=== PATIENT | female | born 2000 | race American Indian/Alaskan Native ===

== ENCOUNTER 2020-10-13 16:16 | Emergency (ER) | payer SELFPAY ==
[2020-10-13] MEDS ORDERED: PANTOPRAZOLE 40 MG INJ IV ONE (16:50)
[2020-10-13 17:14] LABS: Basophils % (Auto) 0.4 % (0.0-1.8); Eosinophils # (Auto) 0.4 K/mm3 (0.0-0.4); Eosinophils % (Auto) 6.2 % (0.0-4.3); Hematocrit 33.6 % (30.3-42.9); Hemoglobin 11.2 gm/dl (10.1-14.3); Lymphocytes # (Auto) 2.1 K/mm3 (1.2-5.4); Lymphocytes % (Auto) 30.5 % (13.4-35.0); Mean Corpuscular HGB Conc 33 % (30-34); Mean Corpuscular Volume 86 fl (79-97); Monocytes # (Auto) 0.7 K/mm3 (0.0-0.8); Monocytes % (Auto) 9.7 % (0.0-7.3); Platelet Count 322 K/mm3 (140-440); Red Blood Count 3.93 M/mm3 (3.65-5.03); Red Cell Distribution Width 14.4 % (13.2-15.2)
--- NOTE | 2020-10-13 17:26 | Emergency Department Report ---
History of Present Illness - General Chief Complaint: Overdose Stated Complaint: TOOKS MEDS Time Seen by Provider: 10/13/20 17:12 Source: patient Mode of arrival: Ambulatory Limitations: No Limitations - History of Present Illness Initial Comments: CC: "I'm emotional and depression. I took over 20 pills of ibuprofen today." HPI: This is a 19 yo female who presents after overdose. She took 22 pills of ibuprofen 200 mg tablets. Patient informed her friend immediately after ingestion. The ingestion took place at 3 PM. Her friend brought her to the emergency department. Patient states that she feels as if she does not belong in her family. She was raised by her father and stepmother. She still lives with her father and stepmother. She has a strained relationship with her "biological" mom. She denies intimate partner stressors. She started a new job with [employer] last week. 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 She did graduate high school. Years ago she attempted to take her life by cutting herself. Due to life transition and "moving around", she lost access to her therapist and medical health treatment. she did take an antidepressant in the past. She denies use of tobacco alcohol or marijuana. Patient has mild nausea and stomach upset at this time. She denies discrete pain. No known exposure to COVID-19 Complaint: intentional overdose -: Sudden Intent: suicide attempt How Overdose Was Discovered: called family/friend Context: Intentional Overdose: relationship problems (with family) Treatments Prior to Arrival: none - Related Data Previous Rx's Medication Instructions Recorded Last Taken Type Dicloxacillin (Nf) [Dynapen (Nf)] 250 mg PO QID #40 capsule 08/27/13 Unknown Rx Allergies Allergy/AdvReac Type Severity Reaction Status Date / Time No Known Allergies Allergy Verified 08/26/13 21:14 ED Review of Systems ROS: Stated complaint: TOOKS MEDS Other details as noted in HPI Comment: All other systems reviewed and negative Constitutional: denies: fever, malaise Respiratory: denies: cough, shortness of breath Cardiovascular: denies: chest pain Gastrointestinal: nausea. denies: abdominal pain ED Past Medical Hx - Past Medical History Previous Medical History?: No - Surgical History Past Surgical History?: No - Social History Smoking Status: Never Smoker Substance Use Type: None - Medications Home Medications: Home Medications Medication Instructions Recorded Confirmed Last Taken Type Dicloxacillin (Nf) [Dynapen (Nf)] 250 mg PO QID #40 capsule 08/27/13 Unknown Rx ED Physical Exam - General Limitations: No Limitations General appearance: alert, in no apparent distress - Head Head exam: Present: atraumatic, normocephalic - Eye Eye exam: Present: normal appearance - ENT ENT exam: Present: mucous membranes moist - Neck Neck exam: Present: normal inspection, full ROM - Respiratory Respiratory exam: Present: normal lung sounds bilaterally. Absent: respiratory distress - Cardiovascular Cardiovascular Exam: Present: regular rate, normal rhythm, normal heart sounds. Absent: systolic murmur, diastolic murmur, rubs, gallop - GI/Abdominal GI/Abdominal exam: Present: soft, normal bowel sounds. Absent: distended, tenderness, guarding, rebound - Extremities Exam Extremities exam: Present: normal inspection - Back Exam Back exam: Present: normal inspection - Neurological Exam Neurological exam: Present: alert, oriented X3 - Psychiatric Psychiatric exam: Present: normal affect, normal mood, other (Appears pleasant insightful affect does not appear to reflect the seriousness of the situation) - Skin Skin exam: Present: warm, dry, intact, normal color. Absent: rash ED Course Vital Signs 10/13/20 10/13/20 16:30 21:05 Temperature 98.2 F 98.2 F Pulse Rate 85 79 Respiratory 18 18 Rate Blood Pressure 145/89 Blood Pressure 137/91 [Left] O2 Sat by Pulse 100 99 Oximetry ED Medical Decision Making - Lab Data Result diagrams: 10/13/20 16:54 10/13/20 16:54 Laboratory Results - last 24 hr 10/13/20 10/13/20 10/13/20 16:54 16:54 16:54 WBC 6.8 RBC 3.93 Hgb 11.2 Hct 33.6 MCV 86 MCH 28 MCHC 33 RDW 14.4 Plt Count 322 Lymph % (Auto) 30.5 [place] % (Auto) 9.7 H Eos % (Auto) 6.2 H Baso % (Auto) 0.4 Lymph # (Auto) 2.1 [place] # (Auto) 0.7 Eos # (Auto) 0.4 Baso # (Auto) 0.0 Seg Neutrophils % 53.2 Seg Neutrophils # 3.6 PT 13.1 INR 1.01 APTT 27.1 Sodium 137 Potassium 3.9 Chloride 105.0 Carbon Dioxide 23 Anion Gap 13 BUN 13 Creatinine 0.7 Estimated GFR > 60 BUN/Creatinine Ratio 19 Glucose 79 Calcium 9.0 Total Bilirubin 0.20 AST 22 ALT 21 Alkaline Phosphatase 66 Total Protein 7.0 Albumin 3.6 L Albumin/Globulin Ratio 1.1 HCG, Qual Salicylates Acetaminophen Plasma/Serum Alcohol 10/13/20 10/13/20 10/13/20 16:54 16:54 16:54 WBC RBC Hgb Hct MCV MCH MCHC RDW Plt Count Lymph % (Auto) [place] % (Auto) Eos % (Auto) Baso % (Auto) Lymph # (Auto) [place] # (Auto) Eos # (Auto) Baso # (Auto) Seg Neutrophils % Seg Neutrophils # PT INR APTT Sodium Potassium Chloride Carbon Dioxide Anion Gap BUN Creatinine Estimated GFR BUN/Creatinine Ratio Glucose Calcium Total Bilirubin AST ALT Alkaline Phosphatase Total Protein Albumin Albumin/Globulin Ratio HCG, Qual Salicylates < 0.3 L Acetaminophen 5.0 L Plasma/Serum Alcohol < 0.01 10/13/20 16:54 WBC RBC Hgb Hct MCV MCH MCHC RDW Plt Count Lymph % (Auto) [place] % (Auto) Eos % (Auto) Baso % (Auto) Lymph # (Auto) [place] # (Auto) Eos # (Auto) Baso # (Auto) Seg Neutrophils % Seg Neutrophils # PT INR APTT Sodium Potassium Chloride Carbon Dioxide Anion Gap BUN Creatinine Estimated GFR BUN/Creatinine Ratio Glucose Calcium Total Bilirubin AST ALT Alkaline Phosphatase Total Protein Albumin Albumin/Globulin Ratio HCG, Qual Negative Salicylates Acetaminophen Plasma/Serum Alcohol - EKG Data -: EKG Interpreted by Ia EKG shows normal: sinus rhythm, axis, intervals, QRS complexes, ST-T waves Rate: normal - EKG Data Interpretation: normal EKG 10/13/20 17:43 EKG obtained 1643 EKG interpreted by ky Rate 75 bpm normal sinus rhythm normal rate normal axis normal intervals no ST elevation no ST-T signs of ischemia normal EKG - Medical Decision Making 1. intentional overdose ibuprofen: charge nurse obtain consultation with [place] [facility] control. Salicylate acetaminophen levels were ordered according to recommendations. Anticipated complications include acidosis, renal dysfunction and GI bleed. Patient will be cleared 6 hours after ingestion. 2. Acute depression with suicide ideation: Patient has received previous mental health treatment. She stated that she took an antidepressant in the past. She thinks that this medication began with the letter "C". Patient is medically clear for psychiatric care. 1013 form has been completed. Patient currently on involuntary hold. Awaiting treatment recommendations by our psychiatric team. Ms. Javier has been observed for 6 hours without adverse events. CBC chemistry within normal limits. Salicylate acetaminophen levels are negative. test negative. Urinalysis UDS unremarkable. Patient is medically clear for psychiatric care. Critical care attestation.: If time is entered above; I have spent that time in minutes in the direct care of this critically ill patient, excluding procedure time. ED Disposition Clinical Impression: Intentional overdose of drug in tablet form, Suicide attempt, Acute depression Disposition: DC/TX-70 ANOTHER TYPE HLTHCARE Is pt being admited?: No Does the pt Need Aspirin: No Condition: Stable
[2020-10-13 17:28] LABS: INR 1.01 (0.87-1.13); Partial Thromboplastin Time 27.1 Sec. (24.2-36.6)
[2020-10-13 17:34] LABS: Alanine Aminotransferase 21 units/L (7-56); Albumin 3.6 g/dL (3.9-5); BUN/Creatinine Ratio 19; Blood Urea Nitrogen 13 mg/dL (7-17); Hemolysis Index 5
[2020-10-13 19:33] LABS: Bilirubin,Urine NEG (Negative); Blood,Urine NEG (Negative); Color,Urine Yellow (Yellow); Mucus,Urine FEW /HPF; Protein,Urine <15 mg/dL mg/dL (Negative)
[2020-10-13 19:40] LABS: Amphetamine Screen,Urine Negative; Benzodiazepines Screen,Urine Negative; Cannabinoid Screen,Urine Negative; Cocaine Screen,Urine Negative; Methadone Screen,Urine Negative; Opiate Screen,Urine Negative
--- NOTE | 2020-10-14 08:18 | Consultation ---
History of Present Illness - Reason for Consult Consult date: 10/14/20 Reason for consult: suicide attempt by OD - History of Present Psychiatric Illness Per ED note: "HPI: This is a 19 yo female who presents after overdose. She took 22 pills of ibuprofen 200 mg tablets. Patient informed her friend immediately after ingestion. The ingestion took place at 3 PM. Her friend brought her to the emergency department. Patient states that she feels as if she does not belong in her family. She was raised by her father and stepmother. She still lives with her father and stepmother. She has a strained relationship with her "biological" mom. She denies intimate partner stressors. She started a new job with [employer] last week. 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 She did graduate high school. Years ago she attempted to take her life by cutting herself. Due to life transition and "moving around", she lost access to her therapist and medical health treatment. she did take an antidepressant in the past. She denies use of tobacco alcohol or marijuana." During my interview with 19y/o Millie Javier, she is sitting on side of the bed. She is tearful and tells me she's ready to go home and she didn't know she would be admitted. She is not forthcoming and tells different picture from what she told in the ER. She tells me she took "12 ibuprofen," but reported she took 22 pills of ibuprofen according to ER note. When asked about this the patient just kept crying. She also told me she did not know why she took the pills. She says "I don't know why I did that. Nothing was going on with me in my life." She then says, "I did it without thinking." The patient eventually admits to a breakup with her significant other that led to her taking the pills after I continued to speak with her. She denies having a suicide attempt in the past, although it is documented otherwise in the ED note. She also denies any psychiatric admissions. The patient says she was diagnosed with depression but hasn't been on meds in "about 4 years." She says she was on "I believe, celexa, but it made me feel weird." She verbalizes wanting meds and is asking to be placed on a different m edication. The patient denies any illicit drug use, alcohol or nicotine. She denies hallucinations of any kind. When asked about suicidal thoughts at present, the patient replied "no," then states "not really." She denies homicidal thoughts. PAST PSYCHIATRIC HISTORY: Diagnoses: Depression Suicide attempts or Self-harm behavior: Denies, but states one in ER note Prior psychiatric hospitalizations: Denies Substance Abuse history: Denies Previous psychiatric medications tried: Celexa Outpatient treatment: Denies PAST MEDICAL HISTORY: No significant past medical history Family Psychiatric History: None reported or documented SOCIAL HISTORY Marital Status: Single Living Arrangements: with parents Employment Status: employed Access to guns/weapons: Denies Education: High school History of Abuse: None reported Legal History: None reported REVIEW OF SYSTEMS Constitutional: Negative for weight loss ENT: Negative for stridor Respiratory: Negative for cough or hemoptysis All other systems reviewed and are negative MENTAL STATUS EXAMINATION General Appearance and Behavior: Age appropriate, good hygiene, wearing appropriate clothes, fair eye contact, cooperative with questioning. 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 Case staffed with Dr. Drummond. Medications and Allergies Allergies Allergy/AdvReac Type Severity Reaction Status Date / Time No Known Allergies Allergy Verified 08/26/13 21:14 Home Medications Medication Instructions Recorded Confirmed Last Taken Type No Known Home Medications [No 10/14/20 10/14/20 Unknown History Reported Home Medications] Mental Status Exam - Vital signs Last Vital Signs Temp 98.3 F 10/14/20 02:55 Pulse 85 10/14/20 02:55 Resp 18 10/14/20 02:55 BP 135/83 10/14/20 02:55 Pulse Ox 99 10/14/20 02:55 Results Result Diagrams: 10/13/20 16:54 10/13/20 16:54 Abnormal lab results 10/13/20 10/13/20 10/13/20 Range/Units 16:54 16:54 16:54 [place] % (Auto) 9.7 H (0.0-7.3) % Eos % (Auto) 6.2 H (0.0-4.3) % Albumin 3.6 L (3.9-5) g/dL Salicylates < 0.3 L (2.8-20.0) mg/dL Acetaminophen (10.0-30.0) ug/mL 10/13/20 Range/Units 16:54 [place] % (Auto) (0.0-7.3) % Eos % (Auto) (0.0-4.3) % Albumin (3.9-5) g/dL Salicylates (2.8-20.0) mg/dL Acetaminophen 5.0 L (10.0-30.0) ug/mL All other labs normal.
[2020-10-14] MEDS ORDERED: SERTRALINE 25 MG TAB PO ONE (09:00)
[2020-10-14] MEDS ORDERED: traZODone 50 MG TAB PO SCH (22:00)
[2020-10-15 08:55] VITALS: BP 142/75
== END 2020-10-15 17:01 | disposition other institution (70) ==
LOC: ED 16:16
DX: T50.902A Poisoning by unspecified drugs, medicaments and biological substances, intentional self-harm, initial encounter (principal); F32.9 Major depressive disorder, single episode, unspecified; Z79.899 Other long term (current) drug therapy; Z20.828 Contact with and (suspected) exposure to other viral communicable diseases
CPT/HCPCS: 36415; 80053; 80307; 81001; 84703; 85025; 85610; 85730; 93005; 96374; 99285; C9113; U0003; 80320; G0480

== ENCOUNTER 2022-01-06 14:49 | Outpatient (CLI) | payer OTHER ==
[2022-01-06 15:19] VITALS: BP 124/64
== END 2022-01-06 15:53 | disposition home or self-care (01) ==
LOC: TRG 14:49 → APU 14:50 → TRG 15:53
PROVIDERS: ATTEND Obstetrics & Gynecology
DX: O36.8120 Decreased fetal movements, second trimester, not applicable or unspecified (principal); Z3A.27 27 weeks gestation of pregnancy
CPT/HCPCS: 59025

== ENCOUNTER 2022-03-23 06:11 | Outpatient (CLI) | payer OTHER ==
[2022-03-23 07:28] VITALS: BP 101/59
== END 2022-03-23 08:12 | disposition home or self-care (01) ==
LOC: TRG 06:11 → APU 06:12 → TRG 08:12
PROVIDERS: ATTEND Obstetrics & Gynecology
DX: Z34.93 Encounter for supervision of normal pregnancy, unspecified, third trimester (principal); Z3A.38 38 weeks gestation of pregnancy
CPT/HCPCS: 59025

== ENCOUNTER 2022-03-24 11:39 | Inpatient (IN) | payer OTHER ==
[2022-03-24] MEDS ORDERED: ONDANSETRON 4 MG/2 ML INJ IV PRN ×2 (12:57→21:08)
[2022-03-24] MEDS ORDERED: PROMETHAZINE 25 MG TAB PO PRN ×2 (12:57→21:08)
[2022-03-24] MEDS ORDERED: ePHEDrine SULFATE 50 MG/1 ML INJ IV PRN ×2 (12:57→18:37)
[2022-03-24] MEDS ORDERED: BUTORPHANOL 2 MG/1 ML INJ IV PRN (12:57)
[2022-03-24] MEDS ORDERED: fentaNYL 100 MCG/2 ML INJ IV PRN (12:57)
[2022-03-24] MEDS ORDERED: ACETAMINOPHEN 325 MG TAB PO PRN (12:57)
[2022-03-24] MEDS ORDERED: LIDOCAINE (2%) 20 MG/1 ML VIAL 20 ML MDV INFILTRATI SCH (12:57)
[2022-03-24] MEDS ORDERED: NALOXONE 0.4 MG/1 ML INJ IV PRN ×2 (12:57→18:37)
[2022-03-24] MEDS ORDERED: TERBUTALINE 1 MG/1 ML INJ SUB-Q PRN (12:57)
[2022-03-24] MEDS ORDERED: miSOPROStol 200 MCG TAB PR PRN (12:57)
[2022-03-24] MEDS ORDERED: MINERAL OIL 30 ML ORAL LIQD PO PRN (12:57)
[2022-03-24] MEDS ORDERED: METHYLERGONOVINE MALEATE 0.2 MG/ML VIAL IM PRN (12:57)
[2022-03-24] MEDS ORDERED: LOPERAMIDE 2 MG CAP PO PRN (12:57)
[2022-03-24] MEDS ORDERED: OXYTOCIN 10 UNIT/1 ML INJ IM PRN (12:57)
[2022-03-24] MEDS ORDERED: CARBOPROST TROMETHAMINE 250 MCG/1 ML INJ IM PRN (12:57)
[2022-03-24] MEDS ORDERED: OXYTOCIN DRIP 30 UNITS/500 ML BAG IV SCH ×2 (13:00)
--- NOTE | 2022-03-24 13:16 | History and Physical Report ---
History of Present Illness Date of examination: 03/24/22 Date of admission: 03/24/2022 Chief complaint: My water broke. History of present illness: Pt is a 21 y.o. @ 38.4 weeks who presented to triage with c/o SROM for clear fluid at 0600am. States the fluid has continued to leak. she is having some contractions that are about 10 minutes apart. Clear fluid noted on peripad upon admission to triage. Of note, she was being seen by [facility] d/t IUGR, EIF (resolved), + AFP for DS (ruled out). Last growth u/s was on 03/04 @ 34.5 wks, 2070g, no pounds given. Her her last BPP was 8/8 with normal dopplers on 03/06. She was scheduled for a growth u/s on 03/11, but that appointment was missed. She was scheduled for an IOL on 03/26 @ 2030 d/o IUGR. History of COVID in August of 2021. EDC Confirmation: 04/03/2022 Gestational Age: 38.4 weeks on admission Past History : 1 Term Births: 0 Premature Births: 0 Living Children: 0 Para: 0 Mult. Births: 0 Prev : 0 Prev. attempt? 0 Aborta: 0 Elect. Ab: 0 Spont. 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 Infection History Hx of STD: none HIV Risk Eval: no Hepatitis B Risk Eval: low risk Personal hx. of genital herpes: no Partner hx. of genital herpes: no Rash, Viral, or Febrile illness since last LMP? yes Varicella/Chicken Pox Status: Unknown Infection History Comments: pt's step mother states pt had "small pox" as child recovering from COVID 08/2021 Genetic History Congenital Heart Defect: Mom: no Dad: unknown Domenico Disease: Mom: no Dad: unknown Thalassemia Mom: no Dad: unknown Neural Tube Defect Mom: no Dad: unknown Down's Syndrome Mom: no Dad: unknown Tk-Sachs Mom: no Dad: unknown Sickle Cell Disease/Trait Mom: no Dad: unknown Hemophilia Mom: no Dad: unknown Muscular Dystrophy Mom: no Dad: unknown Cystic Fibrosis Mom: no Dad: unknown Swisher Chorea Mom: no Dad: unknown Mental Retardation Mom: no Dad: unknown Fragile X Mom: no Dad: unknown Other Genetic/Chromosomal Disorder Mom: no Dad: unknown Child w/other defect Mom: no Dad: unknown Enviromental Exposures Xray Exposure: no Medication, drug, or alcohol use since LMP: no Chemical/Other Exposure: no Exposure to Cat Liter: no Hx of Parvovirus (Fifth Disease): no Occupational Exposure to Children: none Active Medications (reviewed today): None Current Allergies (reviewed today): * POLLEN (Critical) * RASBERRYS (Critical) Past History Past Medical History: no pertinent history Past Surgical History: no surgical history Family/Genetic History: other (Mother: Eczema.) Social history: no significant social history - Obstetrical History Expected Date of Delivery: 04/03/22 Actual Gestation: 38 Week(s) 4 Day(s) : 1 Para: 0 Hx # Term Pregnancies: 0 Number of Pregnancies: 0 Spontaneous Abortions: 0 Induced : 0 Number of Living Children: 0 Medications and Allergies Allergies Allergy/AdvReac Type Severity Reaction Status Date / Time No Known Allergies Allergy Verified 08/26/13 21:14 Home Medications Medication Instructions Recorded Confirmed Last Taken Type No Known Home Medications [No 10/14/20 10/14/20 Unknown History Reported Home Medications] Active Meds: Active Medications Acetaminophen (Acetaminophen 325 Mg Tab) 650 mg PO Q4H PRN PRN Reason: Pain, Mild (1-3) Butorphanol Tartrate (Butorphanol 2 Mg/1 Ml Inj) 1 mg IV Q2H PRN PRN Reason: Pain, Moderate(4-6) LABOR PAIN Carboprost Tromethamine (Carboprost Tromethamine 250 Mcg/1 Ml Inj) 250 mcg IM ONCE PRN PRN Reason: Uterine Bleeding Ephedrine Sulfate (Ephedrine Sulfate 50 Mg/1 Ml Inj) 10 mg IV Q2M PRN PRN Reason: Hypotension Fentanyl (Fentanyl 100 Mcg/2 Ml Inj) 100 mcg IV Q2H PRN PRN Reason: Pain,Severe (7-10) LABOR PAIN Oxytocin/Sodium Chloride (Pitocin/Ns 30 Unit/500ml) 30 units in 500 mls @ 4 mls/hr IV TITR JULIET; Protocol Lactated Ringer's (Lactated Ringers) 1,000 mls @ 125 mls/hr IV DIRECT JULIET Oxytocin/Sodium Chloride (Pitocin/Ns 30 Unit/500ml) 30 units in 500 mls @ 40 mls/hr IV TITR JULIET; Protocol Ampicillin Sodium (Ampicillin/Ns 2 Gm/100 Ml) 2 gm in 100 mls @ 100 mls/hr IV ONCE ONE; Protocol Stop: 03/24/22 14:59 Lidocaine (Lidocaine (2%) 20 Mg/1 Ml Vial 20 Ml Mdv) 20 ml INFILTRATI ONCE ONE Stop: 03/24/22 12:58 Loperamide HCl (Loperamide 2 Mg Cap) 2 mg PO ONCE PRN PRN Reason: give with Hemabate Methylergonovine Maleate (Methylergonovine Maleate 0.2 Mg/Ml Vial) 0.2 mg IM ONCE PRN PRN Reason: Uterine Bleeding Mineral Oil (Mineral Oil 30 Ml Oral Liqd) 30 ml PO QHS PRN PRN Reason: Constipation Misoprostol (Misoprostol 200 Mcg Tab) 800 mcg ND ONCE PRN PRN Reason: Uterine Bleeding Naloxone HCl (Naloxone 0.4 Mg/1 Ml Inj) 0.1 mg IV Q2MIN PRN PRN Reason: Res Rate </= 8 or 02 SAT < 92% Ondansetron HCl (Ondansetron 4 Mg/2 Ml Inj) 4 mg IV Q8H PRN PRN Reason: Nausea And Vomiting Oxytocin (Oxytocin 10 Unit/1 Ml Inj) 10 unit IM ONCE PRN PRN Reason: Uterine Bleeding Promethazine HCl (Promethazine 25 Mg Tab) 25 mg PO Q6H PRN PRN Reason: Nausea And Vomiting Terbutaline Sulfate (Terbutaline 1 Mg/1 Ml Inj) 0.25 mg SUB-Q ONCE PRN PRN Reason: Hyperstimulation/Hypertonicity Review of Systems All systems: negative - Vital Signs Vital signs: Vital Signs Temp Pulse Resp BP Pulse Ox 98.3 F 118 H 18 109/62 100 03/24/22 12:11 03/24/22 12:11 03/24/22 12:11 03/24/22 12:11 03/24/22 12:11 Temp Pulse Resp BP Pulse Ox 98.3 F 89 18 109/62 98 03/24/22 12:11 03/24/22 13:08 03/24/22 12:11 03/24/22 12:13 03/24/22 13:08 - Physical Exam Breasts: Positive: deferred Cardiovascular: Regular rate Lungs: Positive: Normal air movement Abdomen: Positive: normal appearance, soft Extremities: Positive: normal - Obstetrical FHR: category 1 Uterine Contraction Monitor Mode: External Cervical Dilatation: 4.5 (Per program manager rn) Cervical Effacement Percentage: 70 station: -1 Uterine Contraction Pattern: Irregular Uterine Tone Measurement Phase: Resting Uterine Contraction Intensity: Mild Results Result Diagrams: 03/24/22 12:57 All other labs normal. GBS POSITIVE HBsAg Screen Negative Negative *1 RPR Non Reactive Non Reactive *2 Rubella Antibodies, IgG 2.84 index Immune >0.99 *3 Non-immune <0.90 Equivocal 0.90 - 0.99 Immune >0.99 ABO Grouping AB *4 Rh Factor Positive *5 Please note: Prior records for this patient's ABO / Rh type are not available for additional verification. Antibody Screen Negative Negative *6 Tests: (3) HB Solu + Rflx [facility] ([id number]) Hemoglobin (Hgb) Solubility Negative Negative *55 Tests: (4) HIV Ab/p24 Ag with Reflex ([id number]) HIV Ab/p24 Ag Screen Non Reactive Non Reactive *56 HIV Negative HIV-1/HIV-2 antibodies and HIV-1 p24 antigen were NOT detected. There is no laboratory evidence of HIV infection. Tests: (5) Gest. Diabetes 1-Hr Screen ([id number]) ! Gestational Diabetes Screen 67 mg/dL 65-139 *57 According to ADA, a glucose threshold of >139 mg/dL after 50-gram load identifies approximately 80% of women with gestational diabetes mellitus, while the sensitivity is further increased to approximately 90% by a threshold of >129 mg/dL. Tests: (6) HCV Antibody reflex to [place] ([id number]) HCV Ab 0.1 s/co ratio 0.0-0.9 *58 Tests: (7) Interpretation: ([id number]) ! Interpretation: SPRCS *59 Negative Not infected with HCV, unless recent infection is suspected or other evidence exists to indicate HCV infection. Assessment and Plan A: 21 y.o. @ 38.4 wks, SROM (clear fluid), GBS Positive, IUGR. - Patient Problems (1) GBS (group B streptococcus) infection Current Visit: Yes Status: Acute Plan to address problem: Antibiotics while in labor. (2) IUGR (intrauterine growth restriction) affecting care of mother Current Visit: Yes Status: Acute Qualifiers: Fetus number: single or unspecified fetus Trimester: third trimester Qualified Code(s): O36.5930 - Maternal care for other known or suspected poor growth, third trimester, not applicable or unspecified Plan to address problem: Admit to labor and delivery augmentation of labor. Initiate IV. Draw admission labs. Pain management: IV pain medication and epidural when desired. Anticipate . VLAD team for delivery. (3) SROM (spontaneous rupture of membranes) Current Visit: Yes Status: Acute Plan to address problem: Limit vaginal exams. Monitor maternal temperature. (4) with 38 completed weeks gestation Current Visit: Yes Status: Acute Plan to address problem: Continuous EFM to monitor status.
[2022-03-24] MEDS ORDERED: AMPICILLIN/NS 2 GM/100 ML 2 GM/100 ML BAG IV ONE (14:00)
[2022-03-24] MEDS: LACTATED RINGERS 1,000 ML IV SCH ×2 (14:10→18:14)
[2022-03-24 14:41] LABS: Hematocrit 34.7 % (30.3-42.9); Hemoglobin 11.4 gm/dl (10.1-14.3); Mean Corpuscular HGB Conc 33 % (30-34); Mean Corpuscular Volume 91 fl (79-97); Platelet Count 284 K/mm3 (140-440); Red Blood Count 3.83 M/mm3 (3.65-5.03); Red Cell Distribution Width 13.9 % (13.2-15.2)
[2022-03-24] MEDS ORDERED: AMPICILLIN/NS 1 GM/50 ML 1 GM/50 ML BAG IV SCH (18:00)
[2022-03-24] MEDS ORDERED: fentaNYL-BUPIV 2 MCG/ML-0.125% 200 MCG/100 ML BAG EPIDURAL SCH (19:00)
--- NOTE | 2022-03-24 19:13 | Anesthesia Day of Surgery ---
Anesthesia Day of Surgery - Day of Surgery Patient Examined: Yes Patient H&P Reviewed: Yes Patient is NPO: Yes Beta Blockers: No Cardiac Clearance: No Pulmonary Clearance: No Moreno's Test: N/A
--- NOTE | 2022-03-24 19:13 | Anesthesia Consultation ---
Anesthesia Consult and Med Hx Date of service: 03/24/22 - Airway Anesthetic Teeth Evaluation: Good ROM Head & Neck: Adequate Mental/Hyoid Distance: Adequate Mallampati Class: Class II Intubation Access Assessment: Probably Good - Pulmonary Exam CTA: Yes - Cardiac Exam Cardiac Exam: RRR - Pre-Operative Health Status ASA Pre-Surgery Classification: ASA2 Proposed Anesthetic Plan: Epidural - Pulmonary Hx Smoking: No Hx Asthma: No Hx Respiratory Symptoms: No SOB: No COPD: No Home Oxygen Therapy: No Hx Pneumonia: No Hx Sleep Apnea: No - Cardiovascular System Hx Hypertension: No Hx Coronary Artery Disease: No Hx Heart Attack/AMI: No Hx Angina: No Hx Percutaneous Transluminal Coronary Angioplasty (PTCA): No Hx Cardia Arrhythmia: No Hx Pacemaker: No Hx Internal Defibrillator: No Hx Valvular Heart Disease: No Hx Heart Murmur: No Hx Peripheral Vascular Disease: No - Central Nervous System Hx Neuromuscular Disorder: No Hx Seizures: No CVA: No Hx Back Pain: No Hx Psychiatric Problems: No (depression) - Gastrointestinal Hx Ulcer: No Hx Gastroesophageal Reflux Disease: No - Endocrine Hx Renal Disease: No Hx End Stage Renal Disease: No Hx Cirrhosis: No Hx Liver Disease: No Hx Insulin Dependent Diabetes: No Hx Non-Insulin Dependent Diabetes: No Hx Thyroid Disease: No Hx Hypothyroidism: No Hx Hyperthyroidism: No - Hematic Hx Anemia: No Hx Sickle Cell Disease: No - Other Systems Hx Alcohol Use: No Hx Substance Use: No Hx Cancer: No Hx Obesity: No
--- NOTE | 2022-03-24 19:14 | Progress Note ---
Labor Epidural - Labor Epidural Start Time: 18:47 Stop Time: 18:51 Performed by:: LOAN SÁNCHEZ Procedure: Epidural Requested for Labor Pain. H&P and PT Chart reviewed and consent obtained. Time out performed and the procedure was explained, all questions answered. Patient was placed in a sitting position with monitors applied. The PTs back was prepped and draped in usual sterile fashion. The Skin was localized with 3 mL of 1% lidocaine at L3-L4. A 17-gauge Touhy epidural needle was advanced to CANDELARIA with saline at 7 cm and no blood/CSF was noted via epidural needle. Epidural catheter was advanced to 12 cm. There was negative aspiration for blood and CSF in the catheter and negative response to a test dose of 3 ml 1.5% lidocaine w/ Epi and a sterile dressing was applied Patient tolerated the procedure well and there were no immediate complications noted.
[2022-03-24] MEDS ORDERED: BUPIVACAINE/PF (0.5%) 5 MG/1 ML 10 ML VIAL INFILTRATI ONE (20:27)
--- NOTE | 2022-03-24 21:07 | Procedure Note ---
OB Delivery Note - Delivery Date of Delivery: 03/24/22 Surgeon: CHRIST DAUGHERTY Estimated blood loss: 200cc - Vaginal Delivery presentation: vertex Delivery position: OA Intrapartum events: mult.variable deceleratio (early decels just prior to delieverey) Delivery induction: none Delivery augmentation: pitocin Delivery monitor: external FHT, external uterine Route of delivery: Delivery placenta: spontaneous Delivery cord: 3 umbilical vessels Episiotomy: none Delivery laceration: 1st degree (right labial), 2nd degree (left labial; perineal) Delivery repair: vicryl (3-0) Anesthesia: local, intravenous, epidural - A at 1 minute: 8 at 5 minutes: 9 Gender: Male (7lbs 3oz)
[2022-03-24] MEDS ORDERED: diphenhydrAMINE 25 MG CAP PO PRN (21:08)
[2022-03-24] MEDS ORDERED: WITCH HAZEL/ GLYCERIN PAD TP PRN (21:08)
[2022-03-24] MEDS ORDERED: LANOLIN/ZINC/DIMETHICONE (LANSINOH) 7 GM TP PRN (21:08)
[2022-03-24] MEDS ORDERED: KETOROLAC 30 MG/1 ML INJ IV PRN (21:08)
[2022-03-24] MEDS ORDERED: MAGNESIUM HYDROXIDE (MOM) ORAL LIQD UDC PO PRN (21:08)
[2022-03-24] MEDS ORDERED: PROMETHAZINE 25 MG RECT SUPP PR PRN (21:08)
[2022-03-25] MEDS: IBUPROFEN 800 MG TAB PO SCH ×3 (00:02→20:09)
[2022-03-25] MEDS ORDERED: TETANUS,DIPH,PERTUSS(ACELL) VACCINE 0.5 ML SYRINGE IM ONE (06:00)
--- NOTE | 2022-03-25 08:36 | Progress Note ---
Assessment and Plan patient doing well, no complaints. H&H ordered for this morning, VSSAF. no s/s anemia. lochia scant, fundus firm. - Patient Problems (1) (normal spontaneous vaginal delivery) Current Visit: Yes Status: Acute Plan to address problem: Continue pathway d/c home tomorrow Subjective - Subjective Date of service: 03/25/22 Principal diagnosis: day#1 s/p Patient reports: appetite normal, voiding normally, pain well controlled, ambulating normally, no dizzy ambulation, no nauseated : doing well, bottle feeding Objective - Vital Signs Latest vital signs: Vital Signs Temp Pulse Resp BP BP BP Pulse Ox 03/25/22 05:50 03/25/22 04:39 98.0 F 70 20 109/53 97 03/25/22 04:20 03/25/22 01:20 03/25/22 00:01 03/24/22 23:10 03/24/22 23:05 98.2 F 79 18 127/57 100 03/24/22 22:30 60 83 L 03/24/22 22:22 94 H 98 03/24/22 22:17 83 99 03/24/22 22:12 82 99 03/24/22 22:07 78 100 03/24/22 22:02 89 100 03/24/22 21:57 78 99 03/24/22 21:54 75 93 03/24/22 21:52 80 100 03/24/22 21:47 82 98 03/24/22 21:45 88 93 03/24/22 21:42 87 98 03/24/22 21:37 80 92 03/24/22 21:32 108 H 87 03/24/22 21:31 98 H 89 03/24/22 21:28 78 129/68 03/24/22 21:27 91 H 87 03/24/22 21:24 79 92 03/24/22 21:22 84 97 03/24/22 21:19 93 H 89 03/24/22 21:17 89 92 03/24/22 21:14 105 H 125/59 03/24/22 21:13 110 H 92 03/24/22 21:12 109 H 96 03/24/22 21:08 100 H 94 03/24/22 21:07 102 H 99 03/24/22 21:02 97.8 F 106 H 18 123/60 99 03/24/22 20:57 92 H 100 03/24/22 20:56 109 H 79 L 03/24/22 20:51 81 100 03/24/22 20:46 85 100 03/24/22 20:41 92 H 100 03/24/22 20:36 91 H 100 03/24/22 20:35 88 123/60 03/24/22 20:31 94 H 100 03/24/22 20:26 104 H 100 03/24/22 20:21 128 H 100 03/24/22 20:16 121 H 99 03/24/22 20:11 98 H 100 03/24/22 20:07 83 77 L 03/24/22 20:06 80 98 03/24/22 20:01 79 98 03/24/22 20:00 83 92/45 03/24/22 19:56 79 106/46 95 03/24/22 19:55 77 72 L 03/24/22 19:51 85 100 03/24/22 19:50 87 91/48 03/24/22 19:46 76 99 03/24/22 19:45 88 94 03/24/22 19:41 76 98 03/24/22 19:40 77 79 L 03/24/22 19:36 71 98 03/24/22 19:34 97 H 86 03/24/22 19:31 88 98 03/24/22 19:26 89 182/132 91 03/24/22 19:24 03/24/22 19:20 86 96 03/24/22 19:15 84 92/51 96 03/24/22 19:11 96 H 113/56 94 03/24/22 19:10 98 H 97 03/24/22 19:05 93 H 126/68 98 03/24/22 19:00 103 H 98 03/24/22 18:59 93 H 123/65 03/24/22 18:55 93 H 91 03/24/22 18:53 94 H 130/64 03/24/22 18:50 103 H 99 03/24/22 18:45 115 H 98 03/24/22 18:31 91 H 91 03/24/22 18:27 81 99 03/24/22 18:26 03/24/22 18:19 97.2 F L 89 16 131/62 03/24/22 18:10 89 131/62 03/24/22 16:11 88 96 03/24/22 16:09 85 93 03/24/22 16:06 80 96 03/24/22 16:01 75 97 03/24/22 15:56 73 99 03/24/22 15:51 79 99 03/24/22 15:46 74 98 03/24/22 15:44 91 H 84 03/24/22 15:41 89 98 03/24/22 15:38 80 88 03/24/22 15:36 76 98 03/24/22 15:32 78 92 03/24/22 15:31 75 99 03/24/22 14:58 89 98 03/24/22 14:57 84 91 03/24/22 14:53 90 98 03/24/22 14:48 93 H 97 03/24/22 14:45 100 H 90 03/24/22 14:43 87 99 03/24/22 14:38 93 H 99 03/24/22 14:33 88 98 03/24/22 14:32 90 92 03/24/22 14:28 89 99 03/24/22 14:23 88 98 03/24/22 14:18 83 100 03/24/22 14:13 86 93 03/24/22 14:08 90 100 03/24/22 14:05 89 88 03/24/22 14:03 86 98 03/24/22 13:58 85 99 03/24/22 13:53 94 H 98 03/24/22 13:48 95 H 98 03/24/22 13:43 90 98 03/24/22 13:38 92 H 97 03/24/22 13:33 88 99 03/24/22 13:28 94 H 99 03/24/22 13:23 91 H 96 03/24/22 13:18 87 97 03/24/22 13:13 82 99 03/24/22 13:08 89 98 03/24/22 13:03 89 97 03/24/22 12:58 94 H 100 03/24/22 12:57 82 L 03/24/22 12:45 87 100 03/24/22 12:39 104 H 99 03/24/22 12:34 123 H 99 03/24/22 12:29 104 H 99 03/24/22 12:24 103 H 99 03/24/22 12:19 102 H 99 03/24/22 12:14 90 99 03/24/22 12:13 112 H 109/62 03/24/22 12:11 98.3 F 118 H 18 109/62 100 Pulse Ox 03/25/22 05:50 98 03/25/22 04:39 03/25/22 04:20 98 03/25/22 01:20 98 03/25/22 00:01 98 03/24/22 23:10 100 03/24/22 23:05 03/24/22 22:30 03/24/22 22:22 03/24/22 22:17 03/24/22 22:12 03/24/22 22:07 03/24/22 22:02 03/24/22 21:57 03/24/22 21:54 03/24/22 21:52 03/24/22 21:47 03/24/22 21:45 03/24/22 21:42 03/24/22 21:37 03/24/22 21:32 03/24/22 21:31 03/24/22 21:28 03/24/22 21:27 03/24/22 21:24 03/24/22 21:22 03/24/22 21:19 03/24/22 21:17 03/24/22 21:14 03/24/22 21:13 03/24/22 21:12 03/24/22 21:08 03/24/22 21:07 03/24/22 21:02 03/24/22 20:57 03/24/22 20:56 03/24/22 20:51 03/24/22 20:46 03/24/22 20:41 03/24/22 20:36 03/24/22 20:35 03/24/22 20:31 03/24/22 20:26 03/24/22 20:21 03/24/22 20:16 03/24/22 20:11 03/24/22 20:07 03/24/22 20:06 03/24/22 20:01 03/24/22 20:00 03/24/22 19:56 03/24/22 19:55 03/24/22 19:51 03/24/22 19:50 03/24/22 19:46 03/24/22 19:45 03/24/22 19:41 03/24/22 19:40 03/24/22 19:36 03/24/22 19:34 03/24/22 19:31 03/24/22 19:26 03/24/22 19:24 97 03/24/22 19:20 03/24/22 19:15 03/24/22 19:11 03/24/22 19:10 03/24/22 19:05 03/24/22 19:00 03/24/22 18:59 03/24/22 18:55 03/24/22 18:53 03/24/22 18:50 03/24/22 18:45 03/24/22 18:31 03/24/22 18:27 03/24/22 18:26 96 03/24/22 18:19 03/24/22 18:10 03/24/22 16:11 03/24/22 16:09 03/24/22 16:06 03/24/22 16:01 03/24/22 15:56 03/24/22 15:51 03/24/22 15:46 03/24/22 15:44 03/24/22 15:41 03/24/22 15:38 03/24/22 15:36 03/24/22 15:32 03/24/22 15:31 03/24/22 14:58 03/24/22 14:57 03/24/22 14:53 03/24/22 14:48 03/24/22 14:45 03/24/22 14:43 03/24/22 14:38 03/24/22 14:33 03/24/22 14:32 03/24/22 14:28 03/24/22 14:23 03/24/22 14:18 03/24/22 14:13 03/24/22 14:08 03/24/22 14:05 03/24/22 14:03 03/24/22 13:58 03/24/22 13:53 03/24/22 13:48 03/24/22 13:43 03/24/22 13:38 03/24/22 13:33 03/24/22 13:28 03/24/22 13:23 03/24/22 13:18 03/24/22 13:13 03/24/22 13:08 03/24/22 13:03 03/24/22 12:58 03/24/22 12:57 03/24/22 12:45 03/24/22 12:39 03/24/22 12:34 03/24/22 12:29 03/24/22 12:24 03/24/22 12:19 03/24/22 12:14 03/24/22 12:13 03/24/22 12:11 Intake and Output 03/24/22 03/25/22 03/25/22 23:59 07:59 15:59 Intake Total 508.333 560 Output Total 200 Balance 508.333 360 Intake: IV 508.333 Lactated Ringers 1,000 ml 508.333 @ 125 mls/hr IV DIRECT JULIET Rx#:[id number] Oral 240 Intake, Free Water 320 Output: Urine 200 Void 200 Other: Total, Intake Amount 240 Total, Output Amount 200 # Voids Void 1 Estimated Blood Loss 100 - Exam Breasts: Present: normal Cardiovascular: Present: Regular rate Lungs: Present: Clear to auscultation, Normal air movement Abdomen: Present: normal appearance, soft Vulva: both: normal Uterus: Present: normal, firm, fundal height below umbilicus Extremities: Present: normal - Labs Labs: Abnormal lab results 03/24/22 03/24/22 Range/Units 12:25 12:57 WBC 11.1 H (4.5-11.0) K/mm3 Membranes Rupture Positive A (Negative)
[2022-03-25 09:32] LABS: Hematocrit 31.3 % (30.3-42.9); Hemoglobin 10.4 gm/dl (10.1-14.3)
--- NOTE | 2022-03-25 16:26 | Post Anesthesia Evaluation ---
- Post Anesthesia Evaluation Patient Participated: Yes Airway Patent: Yes Stable Respiratory Function: Yes Nausea/Vomiting: No Temp > 96.8F: Yes Pain Manageable: Yes Adequeate Hydration: Yes Anesthesia Complications: No Block Receding Appropriately: Yes Patient on Ventilator: No
[2022-03-26] MEDS: IBUPROFEN 800 MG TAB PO SCH (02:04)
--- NOTE | 2022-03-26 08:46 | Discharge Summary ---
Providers - Providers Date of Admission: 03/24/22 12:57 Date of discharge: 03/26/22 (desires d/c home today) Attending physician: CHRIST DAUGHERTY Primary care physician: CHRIST DAUGHERTY Hospitalization Reason for admission: Labor Condition: Good Pertinent studies: post delivery H&H 10.4/31.3 Procedures: Hospital course: uncomplicated and course Disposition: 01 HOME / SELF CARE / HOMELESS Final Discharge Diagnosis (Prints w/discharge instructions): vaginal Time spent for discharge: 15 - Discharge Diagnoses (1) (normal spontaneous vaginal delivery) Status: Acute Core Measure Documentation - Palliative Care Palliative Care/ Comfort Measures: Not Applicable - Core Measures Any of the following diagnoses?: none Exam - Constitutional Vitals: Temp Pulse Resp BP Pulse Ox 98.8 F 78 20 119/74 100 03/26/22 00:00 03/26/22 00:00 03/26/22 02:04 03/26/22 00:00 03/25/22 20:27 General appearance: Present: no acute distress, well-nourished - EENT Eyes: Present: PERRL ENT: hearing intact, clear oral mucosa - Neck Neck: Present: supple, normal ROM - Respiratory Respiratory effort: normal Respiratory: bilateral: CTA - Cardiovascular Rhythm: regular Heart Sounds: Absent: rub, click - Extremities Extremities: No edema Peripheral Pulses: within normal limits - Abdominal General gastrointestinal: Present: soft, non-tender, non-distended, normal bowel sounds Female genitourinary: Present: normal - Integumentary Integumentary: Present: clear, warm, dry - Musculoskeletal Musculoskeletal: gait normal, strength equal bilaterally - Psychiatric Psychiatric: appropriate mood/affect, intact judgment & insight - Neurologic Neurologic: CNII-XII intact, moves all extremities - Additional findings Additional findings: VSSAF, bottle feeding, lochia scant, fundus firm Plan Activity: no restrictions Diet: regular Follow up with: CHRIST DAUGHERTY MD [Primary Care Provider] - 7 Days (Congratulations! Please call [phone] to schedule your son's circumcision in 1 week and your visit in 4 weeks. Bring EMLA cream to your son's visit and wait for instructions. call with any questions or concerns. ) Prescriptions: Lidocain2.5%/Prilocai2.5% [Emla] 2 gm TP ONCE #1 tube Ibuprofen [Motrin 800 MG tab] 800 mg PO Q8HR PRN #30 tablet PRN Reason: Pain, Moderate (4-6)
[2022-03-26 12:33] VITALS: BP 112/66
== END 2022-03-26 13:05 | disposition home or self-care (01) | DRG 775 ==
LOC: TRG 11:39 → APU 11:40 → TRG 13:28 → LD 17:25 → OB 23:04
PROVIDERS: ADMIT Obstetrics & Gynecology; ATTEND Obstetrics & Gynecology
PROC: 10E0XZZ Delivery of Products of Conception, External Approach (ICD-10-PCS; principal; 2022-03-24)
PROC: 0KQM0ZZ Repair Perineum Muscle, Open Approach (ICD-10-PCS; 2022-03-24)
PROC: 3E0R3BZ Introduction of Anesthetic Agent into Spinal Canal, Percutaneous Approach (ICD-10-PCS; 2022-03-24)
PROC: 00HU33Z Insertion of Infusion Device into Spinal Canal, Percutaneous Approach (ICD-10-PCS; 2022-03-24)
PROC: 3E0234Z Introduction of Serum, Toxoid and Vaccine into Muscle, Percutaneous Approach (ICD-10-PCS; 2022-03-25)
DX: O76 Abnormality in fetal heart rate and rhythm complicating labor and delivery (principal); O99.824 Streptococcus B carrier state complicating childbirth; O36.5990 Maternal care for other known or suspected poor fetal growth, unspecified trimester, not applicable or unspecified; Z3A.38 38 weeks gestation of pregnancy; Z37.0 Single live birth; Z20.822 Contact with and (suspected) exposure to COVID-19; O70.1 Second degree perineal laceration during delivery; Z23 Encounter for immunization
CPT/HCPCS: 36415; 59025; 84112; 85014; 85018; 85027; 86592; 86850; 86900; 86901; 88307; G0378; J3490; J0290; J2405; J2590; J7120; U0003

== ENCOUNTER 2022-04-30 04:06 | Emergency (ER) | payer OTHER ==
[2022-04-30 04:23] VITALS: BP 103/73
--- NOTE | 2022-04-30 05:02 | XRay Report ---
CHEST 2 VIEWS INDICATION / CLINICAL INFORMATION: Chest Pain. COMPARISON: None available. FINDINGS: SUPPORT DEVICES: None. HEART / MEDIASTINUM: No significant abnormality. LUNGS / PLEURA: No significant pulmonary or pleural abnormality. No pneumothorax. ADDITIONAL FINDINGS: No significant additional findings. IMPRESSION: 1. No acute findings. Signer Name: Sylvester Yun MD Signed: 04/30/2022 4:58 AM Workstation Name: [id number]
[2022-04-30 05:13] LABS: Basophils % (Auto) 0.3 % (0.0-1.8); Eosinophils # (Auto) 0.2 K/mm3 (0.0-0.4); Eosinophils % (Auto) 2.2 % (0.0-4.3); Hematocrit 36.9 % (30.3-42.9); Hemoglobin 11.8 gm/dl (10.1-14.3); Lymphocytes # (Auto) 1.4 K/mm3 (1.2-5.4); Lymphocytes % (Auto) 15.9 % (13.4-35.0); Mean Corpuscular HGB Conc 32 % (30-34); Mean Corpuscular Volume 92 fl (79-97); Monocytes # (Auto) 0.4 K/mm3 (0.0-0.8); Monocytes % (Auto) 4.6 % (0.0-7.3); Platelet Count 243 K/mm3 (140-440); Red Blood Count 4.01 M/mm3 (3.65-5.03)
[2022-04-30 05:20] LABS: BUN/Creatinine Ratio 16; Blood Urea Nitrogen 13 mg/dL (7-17); Calcium 9.2 mg/dL (8.4-10.2); Hemolysis Index 2
--- NOTE | 2022-04-30 13:19 | Electrocardiograph Report ---
[facility] Test Date: 2022-04-30 Test Time: 04:26:01 Pat Name: GINGER VELIZ Department: Room: Gender: F Lining [place]eller: TECH : 2000 Requested By: KO GARDNER Order Number: [id number] Reading MD: Connor Bernstein Measurements Intervals [place] Rate: 58 P: 46 ND: 131 QRS: 24 QRSD: 91 T: 24 QT: 420 QTc: 414 Interpretive Statements Sinus rhythm No previous ECG available for comparison Electronically Signed On 04-30-2022 13:19:11 EDT by Connor Bernstein
== END 2022-04-30 09:06 | disposition left against medical advice (07) ==
LOC: ED 04:06
DX: R07.9 Chest pain, unspecified (principal); Z53.21 Procedure and treatment not carried out due to patient leaving prior to being seen by health care provider
CPT/HCPCS: 36415; 71046; 80048; 84484; 85025; 93005